=== PATIENT | male | born 1950 | race Caucasian/White ===

== ENCOUNTER 2023-12-09 17:44 | Observation (INO) | payer MEDICARE ==
[~2023-12-09] VITALS: Ht 172.7 cm; Wt 74.0 kg
[~2023-12-09 17:44] MED LIST: CAPT50TA PO
[2023-12-09 17:53] VITALS: BP 138/90; PULSE 104; RESP 18; TEMP 97.9; O2SAT 98
[2023-12-09 18:40] LABS: BASOPHILS % (AUTO) 0.2 % (0.0-2.0); EOSINOPHILS # (AUTO) 0.1 K/uL (0-0.4); EOSINOPHILS % (AUTO) 0.5 % (0.0-4.0); HEMATOCRIT 39.5 % (36-52); HEMOGLOBIN 13.4 g/dL (12.0-18.0); LYMPHOCYTES # (AUTO) 1.8 K/uL (2.0-11.5); LYMPHOCYTES % (AUTO) 13.8 % (20.5-51.1); MEAN CORPUSCULAR HEMOGLOBIN 27 pg (27-31); MEAN CORPUSCULAR HGB CONC 34 g/dL (33-37); MONOCYTES # (AUTO) 0.6 K/uL (0.8-1.0); MONOCYTES % (AUTO) 4.9 % (1.7-9.3); NEUTROPHILS # (AUTO) 10.4 K/uL (1.8-7.7); NEUTROPHILS % (AUTO) 80.6 % (42.2-75.2); PLATELET COUNT (AUTO) 285 K/uL (140-450); RED CELL DISTRIBUTION WIDTH 14.9 % (11.6-13.7)
[2023-12-09 18:59] LABS: INR 1.03 (0.8-1.2); PROTHROMBIN TIME 10.8 secs (10.8-13.4)
[2023-12-09 19:01] LABS: ANION GAP 15.6 (8-16); CALCIUM 9.2 mg/dL (8.5-10.1); CARBON DIOXIDE 25.9 mmol/L (21-32); CHLORIDE 98 mmol/L (98-107); GLUCOSE 151 mg/dL (74-106); POTASSIUM 3.5 mmol/L (3.5-5.1); SODIUM SERUM 136 mmol/L (136-145); UREA NITROGEN, BLOOD 18 mg/dL (7-18)
[2023-12-09 19:54] LABS: APPEARANCE,URINE CLEAR (CLEAR); BILIRUBIN,URINE NEGATIVE (NEGATIVE); BLOOD, URINE TRACE-I (NEGATIVE); COLOR,URINE YELLOW (YELLOW); LEUKOCYTE ESTERASE ,URINE NEGATIVE (NEGATIVE); NITRITE, URINE NEGATIVE (NEGATIVE); PROTEIN,URINE NEGATIVE (NEGATIVE); UGLUCOSE 3+ (NEGATIVE); UROBILINOGEN,URINE 0.2 EU/dL (0.2 - 1)
[2023-12-09 20:04] LABS: BACTERIA,URINE FEW /HPF (None Seen); RBC,URINE 0-5 /HPF (0-5); WBC,URINE 0-5 /HPF (0-5)
[2023-12-09 20:05] LABS: SQUAMOUS EPITHELIAL CELL,UR 0-3 (FEW) /LPF (0-3 (FEW))
[2023-12-09] MEDS ORDERED: MECO10005 PO (21:57)
[2023-12-09] MEDS ORDERED: METF-346 PO (21:57)
[2023-12-09] MEDS ORDERED: ASPI-1749 PO (21:57)
[2023-12-09] MEDS ORDERED: CLOP-68 PO (21:57)
[2023-12-09] MEDS ORDERED: LOSA-272 PO (21:57)
[2023-12-09] MEDS ORDERED: LEVE750T3 PO (21:57)
[2023-12-09] MEDS ORDERED: EMPA25TA PO (21:57)
[2023-12-09] MEDS ORDERED: AMLO10TA PO (21:57)
[2023-12-09] MEDS ORDERED: LIP80 PO (21:57)
[2023-12-10] MEDS ORDERED: HYDROcodone/APAP 5/325 MG 1 TAB TAB PO PRN (01:45)
[2023-12-10] MEDS ORDERED: MORPHINE SULFATE 4 MG/ML SYR IVP PRN (01:45)
[2023-12-10] MEDS ORDERED: MAGNESIUM OXIDE 400 MG TAB PO PRN (01:45)
[2023-12-10] MEDS: NACL 0.9% 1,000 ML IV SCH (01:45)
[2023-12-10] MEDS ORDERED: LORazepam 1 MG TAB PO PRN (01:45)
[2023-12-10] MEDS ORDERED: ONDANSETRON 4 MG/2 ML VIAL IVP PRN (01:45)
[2023-12-10] MEDS ORDERED: POTASSIUM CHLORIDE 10 MEQ TABER PO PRN (01:45)
[2023-12-10] MEDS ORDERED: ACETAMINOPHEN 325 MG TAB PO PRN (01:45)
[2023-12-10] MEDS: ENOXAPARIN 40 MG/0.4 ML SYR SUBQ SCH (09:00)
[2023-12-10 10:40] VITALS: PULSE 89; RESP 18; O2SAT 98
[2023-12-10 12:00] VITALS: BP 126/72; PULSE 118; PULSE 83; RESP 18; TEMP 98.1; O2SAT 98
[2023-12-10] MEDS: ATORVASTATIN 80 MG TAB PO SCH (14:14)
[2023-12-10] MEDS: CLOPIDOGREL 75 MG TAB PO SCH (14:15)
[2023-12-10] MEDS: LOSARTAN 50 MG TAB PO SCH (14:15)
[2023-12-10] MEDS: amLODIPine 5 MG TAB PO SCH (14:15)
[2023-12-10] MEDS: ASPIRIN 81 MG TAB.CHEW PO SCH (14:15)
[2023-12-10] MEDS: metFORMIN 500 MG TAB PO SCH (14:25)
[2023-12-10] MEDS: levETIRAcetam 500 MG TAB PO SCH (14:25)
[2023-12-10 14:31] VITALS: BP 126/72; PULSE 83; RESP 18; TEMP 98.1
== END 2023-12-10 15:00 | disposition home or self-care (01) ==
LOC: MED 17:44 → MTU 12-10 01:44
PROVIDERS: ADMIT Student in an Organized Health Care Education/Training Program; ATTEND Student in an Organized Health Care Education/Training Program
DX: G45.9 Transient cerebral ischemic attack, unspecified (principal); I10 Essential (primary) hypertension; E78.5 Hyperlipidemia, unspecified; R47.1 Dysarthria and anarthria; E11.9 Type 2 diabetes mellitus without complications; D72.829 Elevated white blood cell count, unspecified; Z79.899 Other long term (current) drug therapy; Z86.73 Personal history of transient ischemic attack (TIA), and cerebral infarction without residual deficits
CPT/HCPCS: 36415; 70450; 70496; 70498; 71045; 80048; 81001; 82948; 84484; 85025; 85610; 85730; 86886; 86900; 86901; 93005; 96360; 96361; 97162; 99291; G0378; Q0092; Q9967